=== PATIENT | female | born 2000 | race Caucasian/White ===

== ENCOUNTER 2024-10-09 09:48 | Emergency (ER) | payer BC, SELFPAY ==
--- NOTE | ~2024-10-09 | CT_ITS ---
CLINICAL HISTORY: Right sided pain andi dtenderness CT abdomen and pelvis with contrast Comparison: None Findings: No consolidation at the lung bases. Unremarkable gallbladder and bladder. There is an 8 mm stone in the proximal right ureter causing moderate hydronephrosis. No right nephrolithiasis. No left hydronephrosis or nephrolithiasis. Mild scarring in the upper pole of the left kidney. No focal decreased enhancement of the kidneys. Subcentimeter low attenuating lesion in the liver which is too small to characterize. The other solid organs are unremarkable. No bowel wall thickening or dilation. The appendix is not visualized. No secondary signs of acute appendicitis. Normal vasculature. No lymphadenopathy. No ascites. No acute osseous abnormality. Impression: 8 mm stone in the proximal right ureter causing moderate hydronephrosis. This document has been electronically signed by: Sabrina Dial MD on 10/09/2024 17:52:24
[2024-10-09 10:33] VITALS: BP 124/77; PULSE 77; RESP 16; TEMP 37.1; O2SAT 99; BMI 23.0
[2024-10-09 10:46] LABS: MANUAL DIFF FLAG NO
[2024-10-09 10:52] LABS: Basophils Percent Auto 0.3 % (0-2); Eosinophils Percent Auto 0.3 % (0-4); Hematocrit 41.1 % (37.0-47.0); Hemoglobin 14.1 g/dl (12.0-16.0); Imm Gran Abs Auto 0.04 X10*3/uL (0.00-0.03); Imm Gran Pct Auto 0.4 % (0.0-0.4); Lymphocytes Absolute Auto 1.7 X10*3/uL (1.2-4.9); Lymphocytes Percent Auto 15.4 % (20-40); Mean Corpuscular HGB Conc 34.3 g/dl (31.0-35.0); Mean Corpuscular Hemoglobin 30.2 pg (27.0-33.0); Mean Platelet Volume 8.6 fL (9.4-12.3); Monocytes Absolute Auto 0.9 X10*3/uL (0.1-1.2); Monocytes Percent Auto 7.7 % (2-11); Neutrophils Absolute Auto 8.6 x10*3/uL (2.0-8.3); Neutrophils Percent Auto 75.9 % (45-73); Platelet Count 249 X10*3/uL (160-400); Red Blood Count 4.67 X10*6/uL (4.20-5.50); Red Cell Distribution Width 11.7 % (11.0-16.0); White Blood Count 11.3 X10*3/uL (4.8-10.8)
[2024-10-09 11:05] LABS: Anion Gap 11 (12-20); Blood Urea Nitrogen 11 mg/dL (9-16); Calcium 9.6 mg/dL (8.4-10.2); Carbon Dioxide 24 mmol/L (22-29); Chloride 107 mmol/L (96-108); Creatinine Clr Calc Pharmacy 84.7; Estimated Glomerular Filt Rate > 60; Glucose Random 101 mg/dL (60-115); Potassium 3.8 mmol/L (3.3-5.1); Sodium 138 mmol/L (135-145)
[2024-10-09 11:59] LABS: Appearance Urine Clear; Color Urine Yellow; Glucose Urine UA Negative (Negative); Leukocyte Esterase Urine Moderate (2+) (Negative); Nitrite Urine Negative (Negative); Specific Gravity - Urine <= 1.005 (1.005-1.025); UMIC TRIGGER UACC YES; Urine Blood Negative (Negative); Urine Ketones Negative (Negative); Urine Protein Negative (Neg-Trace)
[2024-10-09 12:01] LABS: UPreg QC Valid YES; Urine Pregnancy NEGATIVE (NEGATIVE)
[2024-10-09 12:02] LABS: Bacteria Urine None Seen (None Seen); Hyaline Casts Urine 0-2 /LPF (0-2); RBC Urine 0-2 /HPF (0-2); Squamous Epithelial Cell Urine 0-2 /HPF (0-2); UACC Culture Trigger YES
--- OUTSIDE RECORDS SUMMARY | 2024-10-09 12:51 | XMS_ITS | Patient Health Record ---
Author Organization [facility] Address [address] [place] [address] Care Team Providers Care Superintendent Operations Division Name Role Phone MATT JACK, JENARO Primary Care Provider PATY Brewer Unavailable [phone] Allergies No Known Allergies Results Component Value Reference Range Notes Chlamydia/GC Amplification Reviewed date:06/18/2024 11:21:51 AM Interpretation: Performing Lab:[facility], [address], [address], [place], Phone - [phone], Director - [place]DM[place] Notes/Report: Chlamydia trachomatis, RAJI Negative Negative Neisseria gonorrhoeae, RAJI Negative Negative PDF Report Reviewed date:06/18/2024 08:51:36 AM Interpretation: Performing Lab:[facility] [place], [address], [address], [place], Phone - [phone], Director - [place]DM[place] Notes/Report: Reason For Referral No Information Medications Medication SIG (Take, Route, Frequency, Duration) Notes Start Date End Date Status Atomoxetine HCl 40 MG Oral for 30 Not-Taking Sertraline HCl 50 MG TAKE 1 TABLET BY [facility] DAILY Oral for 30 PRN Active Nexplanon 68 MG as directed Subcutaneous Active Social History Tobacco Use: Social History Observation Description Date Details (start date - stop date) Never Smoker NA - NA Tobacco Use/Smoking Question Answer Notes Are you a nonsmoker Alcohol Screen (Audit-C) Question Answer Notes Did you have a drink containing alcohol in the p ast year? No Points 0 Interpretation Negative Problems Problem Type SNOMED Code ICD Code Onset Dates Problem Status W/U Status Risk Notes Problem Recurrent major depression (46413540) Major depressive disorder, recurrent, unspecified (F33.9) Active confirmed Problem Attention deficit hyperactivity disorder, combined type (03707832) Attention-deficit hyperactivity disorder, combined type (F90.2) Active confirmed Problem COVID-19 (121032578) COVID-19 (U07.1) Active confirmed Vital Signs Temperature 98.0 degrees Fahrenheit 06/16/2024 Blood pressure diastolic 70 mm Hg 06/16/2024 Height 59 in 06/16/2024 Blood pressure systolic 110 mm Hg 06/16/2024 Weight 111 lbs 06/16/2024 BMI 22.42 kg/m2 06/16/2024 Encounters Encounter Location Date Provider Diagnosis [facility] [address] [place] [address] 06/16/2024 PATY ALLISON Encounter for gynecological examination (general) (routine) without abnormal findings Z01.419 ; High risk bisexual behavior Z72.53 ; Encounter for screening for infections with a predominantly sexual mode of transmission Z11.3 and Encounter for surveillance of implantable subdermal contraceptive Z30.46 Assessments Encounter Date Diagnosis (ICD Code) Assessment Notes Treatment Notes Treatment Clinical Notes Section Notes 06/16/2024 Encounter for gynecological examination (general) (routine) without abnormal findings (ICD-10 - Z01.419) Discussed cervical cancer screening with cytology every 3 years as per ASCCP guidelines. Advised continued annual pelvic exams. Patient encouraged to increase her level of exercise. SBE technique encouraged/tau ght. Safe sexual practices and STI prevention discussed. 06/16/2024 High risk bisexual behavior (ICD-10 - Z72.53) 06/16/2024 Encounter for screening for infections with a predominantly sexual mode of transmission (ICD-10 - Z11.3) 06/16/2024 Encounter for surveillance of implantable subdermal contraceptive (ICD-10 - Z30.46) Continue Nexplanon until 2025. Plan Of Treatment Pending Test Test Name Order Date [id number] 06/16/2024 HBsAg [id number] 06/16/2024 HIV Ab/p24 Ag with Reflex-[id number] 024 HCV Antibody-[id number] 06/16/2024 Next Appt Details Provider Name:PATY BRONSON Marnie, 06/17/2025 11:00:00 AM, [address], [address], [place], [address], Insurance Providers Payer Name Payer Address Payer Phone Subscriber Number Group Number Insured Name Patient Relationship to Insured Coverage Start Date Coverage End Date [employer] [address] [place] [address] [id number] BRIANA MAX Child - Insured has Financial Responsibility Medical (General) History Medical History History ICD Code COVID-19 U07.1 Attention-deficit hyperactivity disorder , combined type F90.2 Major depressive disorder, recurrent, un specified F33.9 Surgical History Surgery Date(Month/Year)
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
--- NOTE | 2024-10-09 15:54 | ED_ITS ---
HPI - General Adult General Chief complaint: Abdominal Pain Stated complaint: Abd pain Time Seen by Provider: 10/09/24 15:54 History of Present Illness ED Provider: Madie TEMPLE narrative: The patient is a 23-year-old female who says that she was awoken from sleep this morning by pain in her right abdomen at around 2:30 AM. The pain has been persistent since then. She has had some associated nausea and vomiting. No diarrhea. She took some ibuprofen which helped for awhile but the pain returned and she went to an urgent care center. She was referred to emergency room. She has never had pain like this before. She does not really feel the pain in her back. She is quite certain she is not . She has a Nexplanon device. She has no history of abdominal surgeries. No fever, sweats, chills. No urinary symptoms. Related Data Previous Rx's ?Medication ?Instructions ?Recorded ibuprofen 400 mg tablet 400 mg PO Q6H PRN pain #14 tabs 10/09/24 morphine 15 mg immediate release 15 mg PO Q6H PRN pain #12 tabs 10/09/24 tablet ondansetron 4 mg disintegrating 4 mg PO Q6H PRN nausea and 10/09/24 tablet vomiting #10 tabs tamsulosin 0.4 mg capsule 0.4 mg PO BEDTIME #7 caps 10/09/24 Allergies Allergy/AdvReac Type Severity Reaction Status Date / Time No Known Allergies Allergy Verified 10/09/24 10:34 Review of Systems 2 Review of Systems: Yes all other systems are reviewed and are negative Physical Exam ED Vital Signs: Vital Signs - 24 hr 10/09/24 19:34 Temperature 98.8 F Pulse Rate 77 Respiratory Rate 16 Blood Pressure 124/77 Pulse Oximetry 99 Oxygen Delivery Method Room Air BMI result Body Mass Index 23.0 Const Other: The patient is a 23-year-old female. She is awake and alert. She does not appear obviously ill or uncomfortable. HENMT Other: Face is symmetrical. Mucous membranes are moist. Eyes General: appearance normal, both eyes and all related structures Neck Neck: Yes full ROM Resp Effort & Inspection: normal respiratory effort Auscultation: clear to auscultation bilaterally Cardio Rate: regular rate Rhythm: regular rhythm Heart sounds: S1 normal heart sound present and S2 normal heart sound present GI Other: The patient has right-sided abdominal tenderness in both the right lower and right upper quadrants. Back/Spine/Pelvis Other: No distinct CVA percussion tenderness on either flank Skin Other: Skin is dry and unremarkable Neuro Other: The patient is awake and alert with a normal mental status. Cranial nerves are grossly intact. She moves her extremities normally and appropriately. Gait is normal Extrem Other: No peripheral edema Medications Administered Discontinued Medications Generic Name Dose Route Start Last Admin Trade Name Freq PRN Reason Stop Dose Admin Sodium Chloride 1,000 mls @ 999 mls/hr 10/09/24 16:15 10/09/24 17:29 Ns IV 10/09/24 17:15 Infused .Q1H1M ROMINA Infusion Sodium Chloride 1,000 mls @ 999 mls/hr 10/09/24 17:30 10/09/24 18:16 Ns IV 10/09/24 18:30 Infused .Q1H1M ROMINA Infusion Iohexol 100 ml 10/09/24 16:57 10/09/24 16:57 Iohexol 350 Mg/Ml 100 Ml Infus..Btl IV 10/09/24 16:58 85 ml ONCE ONE Administration Ketorolac Tromethamine 10 mg 10/09/24 16:04 10/09/24 16:27 Ketorolac Tromethamine 15 Mg/Ml Vial IVPUSH 10/09/24 16:05 10 mg ONCE ONE Administration Tamsulosin HCl 0.4 mg 10/09/24 19:09 10/09/24 19:32 Tamsulosin Hcl 0.4 Mg Capsule PO 10/09/24 19:10 0.4 mg ONCE ONE Administration Medical Decision Making Medical Decision Making [facility] Narrative: The patient is a very pleasant 23-year-old who is generally healthy. She comes with right-sided abdominal pain that woke her from sleep this morning at around 02:30. Has been quite constant and persistent. She has had some nausea and vomiting. No fever. No urinary symptoms. She has never had pain like this before. Differential diagnosis includes appendicitis, biliary colic, pain from a right ovarian syndrome, or possibly a renal source of pain. Labs are unremarkable. Her urinalysis was mildly abnormal but she denies any urinary symptoms. The patient was given an IV and was given ketorolac for pain and IV fluids. A CT scan of the abdomen and pelvis was done and this shows an 8 mm stone in the proximal right ureter causing moderate hydronephrosis. The patient's urinalysis showed 2+ leukocyte esterase and 11-20 white cells. No bacteria. The patient has no symptoms of a UTI and she does not appear infected or toxic in any way. I have asked the patient for a repeat urinalysis with meticulous attention to a clean catch. A repeat urinalysis is negative for leukocyte esterase and nitrites. It shows 6-10 white cells. No bacteria seen. I communicated with Dr. Villalpando of Urology. Although the patient's stone is large in she looks quite well. She does not seem in severe discomfort by any means and she does not appear toxic or ill in any way. My suspicion for an infectious component to this presentation is extremely low. I therefore felt that outpatient management for standard kidney stone care would be appropriate. Dr. Villalpando felt this was reasonable. Therefore the patient was discharged with prescriptions for ibuprofen, morphine, ondansetron, and tamsulosin. The patient was instructed to contact the urology office on Saturday for a follow-up appointment. She was also clearly advised to return if she develops a fever or has significantly worsening pain or vomiting. Lab Data 10/09/24 10:43 10/09/24 10:43 Labs: Lab Results 10/09/24 10/09/24 10/09/24 Range/Units 10:43 11:50 18:41 WBC 11.3 H (4.8-10.8) X10*3/uL RBC 4.67 (4.20-5.50) X10*6/uL Hgb 14.1 (12.0-16.0) g/dl Hct 41.1 (37.0-47.0) % MCV 88.0 (80.0-98.0) fL MCH 30.2 (27.0-33.0) pg MCHC 34.3 (31.0-35.0) g/dl RDW 11.7 (11.0-16.0) % Plt Count 249 (160-400) X10*3/uL MPV 8.6 L (9.4-12.3) fL Immature Gran % (Auto) 0.4 (0.0-0.4) % Neut % (Auto) 75.9 H (45-73) % Lymph % (Auto) 15.4 L (20-40) % [place] % (Auto) 7.7 (2-11) % Eos % (Auto) 0.3 (0-4) % Baso % (Auto) 0.3 (0-2) % Lymph # (Auto) 1.7 (1.2-4.9) X10*3/uL [place] # (Auto) 0.9 (0.1-1.2) X10*3/uL Eos # (Auto) 0.0 (0.0-0.4) X10*3/uL Baso # (Auto) 0.0 (0.0-0.2) X10*3/uL Abs Immat Gran (auto) 0.04 H (0.00-0.03) X10*3/uL Absolute Neuts (auto) 8.6 H (2.0-8.3) x10*3/uL Absolute Nucleated RBC 0.000 (0.0-0.012) X10*3/uL Nucleated RBC % (auto) 0.0 (0.0-0.2) /100WBC Sodium 138 (135-145) mmol/L Potassium 3.8 (3.3-5.1) mmol/L Chloride 107 (96-108) mmol/L Carbon Dioxide 24 (22-29) mmol/L Anion Gap 11 L (12-20) BUN 11 (9-16) mg/dL Creatinine 0.71 (0.5-1.4) mg/dL Estim Creat Clear Calc 84.7 Estimated GFR > 60 Random Glucose 101 (60-115) mg/dL Calcium 9.6 (8.4-10.2) mg/dL Total Bilirubin 0.8 (0.0-1.0) mg/dL Direct Bilirubin 0.3 (0.0-0.5) mg/dL AST 29 (5-31) U/L ALT 20 (0-31) U/L Alkaline Phosphatase 71 (39-117) U/L C-Reactive Protein 0.19 (< or = 0.50) mg/dL Total Protein 8.3 H (6.5-8.0) g/dL Albumin 4.7 (3.5-5.0) g/dL Lipase 22 (8-78) U/L Urine Color Yellow Yellow Urine Appearance Clear Clear Urine pH 7.0 6.5 (5.0-9.0) Ur Specific [place] <= 1.005 >= 1.030 H (1.005-1.025) Urine Protein Negative Negative (Neg-Trace) mg/dL Urine Glucose (UA) Negative Negative (Negative) mg/dL Urine Ketones Negative 15 (Negative) mg/dL Urine Blood Negative Moderate (2+) H (Negative) Urine Nitrite Negative Negative (Negative) Ur Leukocyte Esterase Moderate (2+) H Negative (Negative) Urine RBC 0-2 >20 H (0-2) /HPF Urine WBC 11-20 H 6-10 H (0-5) /HPF Ur Squamous Epith Cells 0-2 0-2 (0-2) /HPF Urine Bacteria None Seen None Seen (None Seen) Hyaline Casts 0-2 0-2 (0-2) /LPF Urine Test NEGATIVE (NEGATIVE) Discharge Plan Discharge Clinical Impression: Calculus of proximal right ureter Patient Disposition: Home, Self-Care Instructions: Renal Colic (ED), Ureteral Stones (ED) Additional Instructions: You have an 8 mm stone in your right ureter. Please take the tamsulosin once a day at bedtime. This may help relax the ureter to allow forward passage of the stone. You have already received your dose of tamsulosin ton, Saturday. For pain control you may take 2 extra-strength acetaminophen (Tylenol) up to 3 times per day. Do not exceed this amount. I have also sent prescriptions for ibuprofen and morphine tablets may take the ibuprofen every 6 hours as needed for pain. May also take the morphine tablets as prescribed as needed. No driving on morphine. Also a prescription for ondansetron has been sent to use as needed for nausea. Drink lot of fluids. Please contact the urology office on Saturday morning for a prompt follow up appointment. If at any point your pain is too severe or if you have a lot of vomiting or if you develop a fever return directly to the emergency room. Prescriptions: New ibuprofen 400 mg tablet 400 mg PO Q6H PRN (Reason: pain) Qty: 14 0RF morphine 15 mg tablet 15 mg PO Q6H PRN (Reason: pain) Qty: 12 0RF Rx Instructions: Partial Fill upon patient request. ondansetron 4 mg tablet,disintegrating 4 mg PO Q6H PRN (Reason: nausea and vomiting) Qty: 10 0RF tamsulosin 0.4 mg capsule 0.4 mg PO BEDTIME Qty: 7 0RF Referrals: [facility] – [place] [facility] [Provider Group] (8 mm right proximal ureteral stone) Stand Alone Forms: Work/School Release Interventions: ED Discharge Assessment Last Done: 10/09/24 19:34 Discharge Date/Time: 10/09/24 19:37 Print Language: Qatari
[2024-10-09] MEDS: Ketorolac Tromethamine 15 MG/ML VIAL 10 MG IVPUSH (16:27)
[2024-10-09] MEDS: 0.9 % Sodium Chloride 1,000 ML 999 ML IV ×2 (16:27→17:29)
[2024-10-09 16:34] LABS: Alanine Aminotransferase 20 U/L (0-31); Albumin Level 4.7 g/dL (3.5-5.0); Alkaline Phosphatase 71 U/L (39-117); Aspartate Amino Transferase 29 U/L (5-31); Bilirubin Direct 0.3 mg/dL (0.0-0.5); Bilirubin Total 0.8 mg/dL (0.0-1.0); C Reactive Protein 0.19 mg/dL (< or = 0.50); Lipase 22 U/L (8-78); Total Protein 8.3 g/dL (6.5-8.0)
[2024-10-09] MEDS: iohexoL 350 MG/ML 100 ML INFUS..BTL IV (16:57)
[2024-10-09 18:48] LABS: Appearance Urine Clear; Color Urine Yellow; Glucose Urine UA Negative (Negative); Leukocyte Esterase Urine Negative (Negative); Nitrite Urine Negative (Negative); PH 6.5 (5.0-9.0); Specific Gravity - Urine >= 1.030 (1.005-1.025); UMIC TRIGGER UACC YES; Urine Blood Moderate (2+) (Negative); Urine Ketones 15 mg/dL (Negative); Urine Protein Negative (Neg-Trace)
[2024-10-09 18:54] LABS: Bacteria Urine None Seen (None Seen); Hyaline Casts Urine 0-2 /LPF (0-2); RBC Urine >20 /HPF (0-2); Squamous Epithelial Cell Urine 0-2 /HPF (0-2); UACC Culture Trigger YES
[2024-10-09] MEDS: Tamsulosin HCL 0.4 MG CAPSULE PO (19:32)
[2024-10-09 19:34] VITALS: BP 124/77; PULSE 77; RESP 16; TEMP 37.1; O2SAT 99
== END 2024-10-09 19:37 | disposition home or self-care (01) ==
PROVIDERS: Emergency Provider Emergency Medicine; PCP Internal Medicine
DX: N20.1 Calculus of ureter (principal); R10.2 Pelvic and perineal pain; R11.2 Nausea with vomiting, unspecified; Z79.899 Other long term (current) drug therapy
CPT/HCPCS: 36415; 74177; 80048; 80076; 81001; 81003; 81025; 83690; 85025; 86140; 87086; 96361; 96374; 99284; J1885; Q9967

== ENCOUNTER → 2024-10-09 16:02 | Outpatient (BNV) | payer BC, SELFPAY | PROVIDERS: Emergency Provider Emergency Medicine; PCP Internal Medicine; Visit Provider Radiology Diagnostic Radiology | DX: N20.1 Calculus of ureter (principal) | CPT/HCPCS: 74177 ==

== ENCOUNTER 2024-10-13 11:15 | Outpatient (AMB) | payer BC, SELFPAY ==
--- NOTE | 2024-10-13 11:17 | A.OFFVIS_ITS ---
Intake Visit Reasons: ureteral stone Intake Note: Patient is present for URETERAL STONE Urology Medication:TAMSULOSIN Antibiotic Allergy:NONE Blood Thinner:NONE TODAY''S PVR:0ML'S Senior Property Manager Required: No Allergies No Known Allergies Allergy (Verified 10/13/24 11:18) HPI Comments Details: Rip is a very pleasant female. She is a patient of . She is seen for the following urologic conditions - ureteric nephrolithiasis Nephrolithiasis Recently seen in emergency room First-time stone former Family history Imaging - 10/13 There is an 8 mm stone in the proximal right ureter causing moderate hydronephrosis. No right nephrolithiasis. No left hydronephrosis or nephrolithiasis. Mild scarring in the upper pole of the left kidney. Recommend intervention - cystoscopy, right retrograde, right ureteroscopy with laser lithotripsy and stone basket Review of Systems Const Denies chills and Denies fever(s) Card Reports no additional complaints and Denies syncope Resp Denies cough GI Denies abdominal pain and Denies heartburn Reports as per HPI and Denies change in libido Neuro Denies syncope Psych Denies change in libido Endo Denies change in libido Physical Exam Const General: cooperative, healthy appearing, comfortable and no acute distress Orientation/consciousness: patient oriented x3 HEENT Face and sinus: Yes normal facial exam Mouth: moist mucous membranes Neck Neck: Yes normal visual inspection, Yes full ROM and Yes trachea midline Chest Chest palpation & inspection: normal inspection of the chest Resp Effort & Inspection: normal respiratory effort, able to speak in complete sentences and no respiratory distress GI Inspection: Yes normal to inspection Back/Spine/Pelvis Cervical Spine: normal cervical lordosis Thoracic/Lumbar Spine: thoracic and lumbar spine normal to inspection Skin General skin exam: no rashes or lesions noted Neuro General: patient oriented x3, gait normal, tone normal and moves all extremities Extrem General: Yes normal to inspection and Yes capillary refill normal Office Procedures Post Void Residual Post Residual Void Post Void Residual (PVR): 0 [id number]-Srsu Void Residual by ultrasound Assessment & Plan Assessment & Plan (1) Ureteric calculus: Code(s): N20.1 - Calculus of ureter Category: Medical Plan Ureteroscopy We discussed the nature of the decision and reasonable alternatives for performing ureteroscopy. Options such as medical therapy were discussed. Interventions include chemical dissolution, ESWL, ureteroscopy with laser lithotripsy and stent placement, PCNL. The relative uncertainties and benefits related to each alternate procedure were adequately discussed. General surgical risks including, but not limited to - pain, bleeding, infection, myocardial infarction, pulmonary embolus, deep vein thrombosis and cerebrovascular accident which may result in further hospitalization were discussed. Full disclosure of the procedure as well as all major risks, benefits and complications were discussed including but not limited to damage to the urethra, bladder and kidney infection, damage to the ureter, stent migration or malposition, scarring to the renal pelvis, remnant stone fragments, subsequent stone passage with need for secondary procedures. The overall secondary procedure rate is approximately 10-15%. The overall clearance rate is approximately 90-95%. Success of the procedure in the short-term does not necessarily guarantee that long-term success will be maintained. Suitable follow up will need to be maintained. The patient showed understanding of discussion and wishes to proceed with - cystoscopy, retrograde, ureteroscopy, possible lithotripsy/stone basketing and stent on the right side Orders: Orders AMB Urinalysis Automated Today Z13.9 - Encounter for screening, unspecified Medications: New naproxen 500 mg PO BID 14 days 28 tabs 0RF N20.1 - Calculus of ureter Discontinued ibuprofen Discontinued Reason: Patient Completed Course 400 mg PO Q6H PRN 14 tabs 0RF pain Patient Instructions: This note is constructed using voice recognition software. While every effort has been made to ensure accuracy regional property manager errors may have been included. Imaging studies, laboratory and physical exam results were discussed and reviewed in detail. No major barriers to patient understanding were identified. An opportunity to ask questions regarding the treatment plan was provided. All questions were answered. The patient expressed understanding and agreement with the above treatment plan. The patient is aware they should contact our office by phone for worsening of their current condition or the appearance of new urologic symptoms. Compliance is encouraged with any medications and followup testing that is ordered. It is a privilege to participate in the urologic care of your patient. If you have any questions or concerns regarding treatment for the above conditions, or other urologic issues, please do not hesitate to contact me. The office telephone contact is [phone]. Sincerely, Dr Maycol Mcintosh MD, [facility] - Urology Compassionate Specialist Care for the Genitourinary System Coding Level of Care Code New Pt Level 4 (52859) Diagnoses Ureteric calculus N20.1 CPT Codes Post Residual Void - PVR CPT Code: 22214-Ojek Void Residual by ultrasound ([id number])
--- OUTSIDE RECORDS SUMMARY | 2024-10-13 13:47 | XMS_ITS | Patient Health Record ---
Author Organization [facility] Address [address] [place] [address] Care Team Providers Care Manager Of Care Name Role Phone MATT JACK, JENARO Primary Care Provider PATY Brewer Unavailable [phone] Allergies No Known Allergies Results Component Value Reference Range Notes Chlamydia/GC Amplification Reviewed date:06/18/2024 11:21:51 AM Interpretation: Performing Lab:[facility], [address], [address], [place], Phone - [phone], Director - [place] Notes/Report: Chlamydia trachomatis, RAJI Negative Negative Neisseria gonorrhoeae, RAJI Negative Negative PDF Report Reviewed date:06/18/2024 08:51:36 AM Interpretation: Performing Lab:[facility], [address], [address], [place], Phone - [phone], Director - [facility] Notes/Report: Reason For Referral No Information Medications Medication SIG (Take, Route, Frequency, Duration) Notes Start Date End Date Status Atomoxetine HCl 40 MG Oral for 30 Not-Taking Sertraline HCl 50 MG TAKE 1 TABLET BY [facility] DAILY Oral for 30 PRN Active Nexplanon [...] Status Risk Notes Problem Recurrent major depression (35472331) Major depressive disorder, recurrent, unspecified (F33.9) Active confirmed Problem Attention deficit hyperactivity disorder, combined type (12358151) Attention-deficit hyperactivity disorder, combined type (F90.2) Active confirmed Problem COVID-19 (026045978) COVID-19 (U07.1) Active confirmed Vital Signs Temperature 98.0 degrees Fahrenheit 06/16/2024 Blood pressure diastolic 70 mm Hg 06/16/2024 Height 59 in 06/16/2024 Blood pressure systolic 110 mm Hg 06/16/2024 Weight 111 lbs 06/16/2024 BMI 22.42 kg/m2 06/16/2024 Encounters Encounter Location Date Provider Diagnosis [facility] [address] [place] [address] 06/16/2024 PATY ALLISON Encounter for gynecological examination [...] Treatment Pending Test Test Name Order Date [id number] 06/16/2024 HBsAg [id number] 06/16/2024 HIV Ab/p24 Ag with Reflex-[id number] 024 HCV Antibody-[id number] 06/16/2024 Next Appt Details Provider Name:PATY BRONSON Marnie, 06/17/2025 11:00:00 AM, [address], [address], [place], [address], Insurance Providers Payer Name Payer Address Payer Phone Subscriber Number Group Number Insured Name Patient Relationship to Insured Coverage Start Date Coverage End Date [employer] [place] [address] [place] [address] [id number] BRIANA MAX Child - Insured has Financial Responsibility Medical (General) History Medical History History ICD Code COVID-19 U07.1 Attention-deficit hyperactivity disorder , combined type F90.2 Major depressive disorder, recurrent, un specified F33.9 Surgical History Surgery Date(Month/Year)
--- OUTSIDE RECORDS SUMMARY | 2024-10-13 13:47 | XMS_ITS ---
Author Organization [facility] Address [address] [place] [address] Care Team Providers Care Cook Pickled Meat Name Role Phone MATT JACK, JENARO Primary Care Provider Fariha PATY Palacios Unavailable [phone] Allergies No Known Allergies Results Component Value Reference Range Notes PDF Report Reviewed date:06/18/2024 08:51:36 AM Interpretation: Performing Lab:[facility], [address], [address], [place], Phone - [phone], [facility] - [facility] Notes/Report: Chlamydia/GC Amplification Reviewed date:06/18/2024 11:21:51 AM Interpretation: Performing Lab:[facility] [place], [address], [address], [place], Phone - [phone], [facility] Notes/Report: Chlamydia trachomatis, RAJI Negative Negative Neisseria gonorrhoeae, RAJI Negative Negative REASON FOR VISIT Annual 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 [address] [place] [address] 06/16/2024 PATY ALLISON Encounter for gynecological examination [...] 2025. Pending Test Test Name Order Date [id number] 06/16/2024 HBsAg Screen-[id number] 06/16/2024 HIV Ab/p24 Ag with Reflex-[id number] 024 HCV Antibody-[id number] 06/16/2024 Next Appt Details Follow Up: 1 Year, Reason: Y early Special Education Educational Assistant Exam Provider Name:PATY BRONSON Marnie, 06/17/2025 11:00:00 AM, [address], [address], [place], [address], Progress Notes * DONTAE ORDAZ:2000 ([age] yo F)Acc No.[id number]:06/16/2024 PROGRESS NOTES Patient:?RIP ORDAZ Provider:?PATY ALLISON MD :2000???Age:23 Y???Sex:Female D ate:06/16/2024 Address:[address] [place] [address] Pcp:JENARO GUTIERREZ MD Subjective: * Chief Complaints: * ???Annual 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 She has the following concerns: irregular bleeding with Nexplanon ?She has received the [employer] Covid-19 vaccine. ?Relationship status: partnered, male, for [...] -2?days/week by running and walking. * ROS:?Annual Special Education Educational Assistant Exam ROS:?Bowel habit changes?denies.?Bladder symptoms?denies.?Vaginal discharge, unusual?denies.?Vaginal itch or odor?denies.?weight or appetite changes?denies.?Chest pains, SOB?denies.?depression?denies.?Breast:?Denies?Breast lump.?Denies?Nipple discharge.?Hematology:?Denies?Swollen glands.?Skin:?Patient denies?changing moles.?Psychiatric:?Admits?Anxiety,?she uses breathing techniques and taking some space.? * Medical History:? * Special Education Educational Assistant History:?/ Para?0/0.?Sexual activity?with both men and women; [...] status: single. 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 ?Pets: cats: 1. ?Sexual abuse: no. ?Sexually [...] no acute distress, well developed, well nourished, fruit harvest worker present in room.?HEAD:?normocephalic, atraumatic.?NECK/THYROID:?neck supple, full range [...] * Treatment: 2.?High risk bisexual behavi or?LAB: [id number] ?LAB: HBsAg Screen-[id number] ?LAB: HIV Ab/p24 Ag with Reflex-[id number] ?LAB: HCV Antibody-[id number] ?LAB: Chlamydia/GC Amplification 3.?Encounter for screening f or infections with a predominantly sexual mode of transmission?LAB: [id number] ?LAB: HBsAg Screen-465329 ?LAB: HIV Ab/p24 Ag with Reflex-553751 ?LAB: HCV Antibody-[id number] ?LAB: Chlamydia/GC Amplification 4.?Encounter for surveillanc e of implantable subdermal contraceptive? Notes: Continue Nexplanon until 2025.?? * Procedure Codes:? * Follow Up:?1 Year (Reason: Y early Special Education Educational Assistant Exam) * Images: Billing Information: * Visit Code:? 75881 Preventive Care Est Pt. Age 18-39. * Procedure Codes:? * Sign off status: Completed true * Provider:?PATY ALLISON MD Date:?2023 Generated for Peng constantino/Sue/Adrianaitting on:?10/13/2024 01:47 PM EST History and Physical Notes * HPI (History of Present Illness) Category Sub-Category Detail Notes Category Not es Constitutional Rip is a 23yo G0 with irregular spotting on Nexplanon who presents for her yearly leaf conditioner annual exam. She has been in state [...] General Examination GENERAL APPEARANCE: in no ac [place] distress, well developed, well nourished, fruit harvest worker present in room HEAD: normocephalic, atrau matic [...]
--- OUTSIDE RECORDS SUMMARY | 2024-10-13 13:47 | XMS_ITS ---
Author Organization [facility] Address [address] [place] [address] Care Team Providers Care Outside Machinist Supervisor Name Role Phone MATT JACK, JENARO Primary Care Provider Fariha vailamumtaz ALLISON PATY Unavailable [phone] Allergies No Known Allergies Results Component Value Reference Range Notes ANTI-HEPATITIS C Reviewed date:06/17/2023 08:53:49 AM Interpretation: Performing Lab:Testing performed or reported by [facility], a Service of [facility], [address] [place] [address] Jem Emerson MD, Steam Drier Tender CLIA# [id number] Notes/Report: ANTI-HEPATITIS C NEGATIVE (NEG) Reference range: Negative This test was performed on the Malin Resizer Operator immunoassay system. HEP. B SURF. AG Reviewed date:06/17/2023 08:53:55 AM Interpretation: Performing Lab:Testing performed or reported by [facility], a Service of [facility], [address] [place] [address] Jem Emerson MD, Steam Drier Tender CLIA# [id number] Notes/Report: HEP. B SURF. AG NEGATIVE (NEG) Test perform ed by [facility], [address] [place] [address] THIN PREP,HPV IF ASCUS, CT/G C (21-29YR) Reviewed date:06/20/2023 01:49:38 PM Interpretation: Performing Lab:Testing performed or reported by [facility], a Service of [facility], [address] [place] [address] Jem Emerson MD, Steam Drier Tender CLIA# [id number] Notes/Report: Patient Name: RIP ORDAZ Patient : 2000 (Age: 22) Lab Collection Date: 06/13/2023 Accession Date: 06/13/2023 Sign Out Date: 06/20/2023 Tissue Source: 1: THINPREP HI LIFT OPERATOR PAP TEST, CERVICAL/VAGINAL: Final Diagnosis: NEGATIVE FOR INTRAEPITHELIAL LESION OR MALIGNANCY. Satisfactory for evaluation. Endocervical/transformati on zone present. Clinical History: Date of Last Menstrual Period: 03/2023 Menstrual History: not available Contraceptive History: not available Ancillary Testing: HPV (ASCUS) Chlamydia/GC Case imaged by the ThinPrep Imaging System with manual rescreening or review. Performed at [facility] department of Cytology, [facility] [place] Clinical History (other): Z01.419, Z11.3, IRREGULAR PERIOD WITH [employer] Phone #: [phone], On-Call Pathologist: [id number] SYPHILIS TESTING Reviewed date:06/17/2023 08:54:02 AM Interpretation: Performing Lab:Testing performed or reported by [facility], a Service of [facility], [facility] [place] [address] Jem Emerson MD, Steam Drier Tender CLIA# [id number] Notes/Report: SYPHILIS SCREEN BY NICHOLE NEGATIVE (NEG) Reference range: Negative This test was performed on the CaseTrek Resizer Operator immunoassay system. RPR TITER RESULT NOT INDICATED TPPA RESULT NOT INDICATED SYPHILIS INTERPRETATION Indicative of th e absence of infection with Treponemal pallidum. Test may be negative in cases of incubating or early primary syphilis. Consider repeat testing in several weeks if clinical suspicion is high. HIV AB-AG 4TH GENERATION Reviewed date:06/17/2023 08:54:13 AM Interpretation: Performing Lab:Testing performed or reported by [facility], a Service of [facility], [facility] [address] Jem Emerson MD, Steam Drier Tender CLIA# [id number] Notes/Report: RESULT 4TH GEN HIV AB-AG NEGATIVE (NEG) Negative for antibodies to HIV 1 and HIV 2 and P24 antigen. Reference range: Negative Additional note: Written patient authorization is required for each separate release of this test result. This test was performed on the Malin Resizer Operator immunoassay system. REASON FOR VISIT Annual HI LIFT OPERATOR Physical Medications Medication SIG (Take, Route, Fr [...] Status W/U Status Risk Notes Problem COVID-19 (320144562) COVID-19 (U07.1) Active confirmed Problem Attention deficit hyperactivity disorder, combined type (65345974) Attention-deficit hyperactivity disorder, combined type (F90.2) Active confirmed Problem Recurrent major depression (91786550) Major depressive disorder, recurrent, unspecified (F33.9) Active confirmed Vital Signs Temperature 97.3 degrees Fahrenheit 06/13/20 23 Blood pressure systolic 104 mm Hg 06/13/20 23 Blood pressure diastolic 60 mm Hg 023 Height 59 in 06/13/2023 Weight 108 lbs 06/13/2023 BMI 21.81 kg/m2 06/13/2023 Encounters Encounter Location Date Provider Diagnosis [address] [place] [address] 06/13/2023 PATY ALLISON Encounter for gynecological examination [...] Follow Up: 1 Year, Reason: Y early Energy Director Exam Provider Name:PATY BRONSON Marnie, 06/17/2025 11:00:00 AM, [address], [address], [place], [address], Progress Notes * RIP ORDAZDOB:2000 ([age] yo F)Acc No.[id number]:06/13/2023 Progress Note Patient:?RIP ORDAZ Provider:?PATY ALLISON MD :2000???Age:22 Y???Sex:Female D ate:06/13/2023 Address:[address] [place] [address] Pcp:JENARO GUTIERREZ MD Subjective: * Chief Complaints: * ???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 Rip is a 22yo G0 with irregular spotting on Nexplanon who presents for her yearly sampler ovens annual exam. She is new to this practice, having never received previous sampler ovens care. ?She has been in state of good health since her last exam. She has the following concerns: she had postcoital bleeding - sometimes light, sometimes heavy, last time was about a year ago. ?She has received the [employer] Covid-19 vaccine. ?Relationship status: single. She is [...] have dancing and other movement). * ROS:?Annual Energy Director Exam ROS:?Bowel habit changes?denies.?Bladder symptoms?denies.?Vaginal discharge, unusual?denies.?Vaginal itch or odor?denies.?weight or appetite changes?denies.?Chest pains, SOB?denies.?depression?denies,?feels ok today - denies SI/HI.?Breast:?Denies?Breast lump.?Denies?Nipple discharge.?Hematology:?Denies?Swollen glands.?Skin:?Patient denies?changing moles.?Psychiatric:?Admits?Anxiety,?she uses deep breathing and introspective review.? * Medical History:? * Energy Director History:?/ Para?0/0.?Sexual activity?with both men and women; identifies as female.?LMP and menses?irregular, 03/2023.?History of STD's:?Chlamydia.? Control:?Nexplanon, Insertion 10/2022.?Menarche?14.?*Hep B Vac?2014.? * OB History:?Total pregnancies?0.? * Surgical History:?Denies Pas t Surgical History * Hospitalization/Major Diagno stic Procedure:?Denies Past Hospitalization * Family History:?Mother: aliv e, diabetes, mental illness, estranged from bio parents.?Father: alive, diabetes, mental illness, estranged.? Sister - Juyd - 2009 - shares same mother - [...] ?GENERAL APPEARANCE:?in no acute distress,well developed, well nourished,package dye stand loader present in room.?HEAD:?normocephalic, atraumatic.?NECK/THYROID:?neck supple, full range [...] * Treatment: ? Value Reference Range ?CYTOLOGY, HI LIFT OPERATOR Patient Name: RIP ORDAZ - * VAGINAL/CERVICAL, [...] Codes:? * Preventive Medicine:?Suicide Prevention Hotline - 787 [email or web address] * Follow Up:?1 Year (Reason: Y early Energy Director Exam) * Images: Billing Information: * Visit Code:? 90541 Preventive Care New Pt. Age 18-39. * Procedure Codes:? * Sign off status: Completed true * Provider:?PATY ALLISON MD Date:?2022 Generated for Peng constantino/Sue/Harris on:?10/13/2024 01:46 PM EST History and Physical Notes * HPI (History of Present Illness) Category Sub-Category Detail Notes Category Not es Constitutional Rip is a 22yo G0 with irregular spotting on Nexplanon who presents for her yearly sampler ovens annual exam. She is new to this practice, having never received previous sampler ovens care. She has been in state of good health since her last exam. She has the following concerns: she had postcoital bleeding - sometimes light, sometimes heavy, last time was about a year ago. She has received the [employer] Covid-19 vaccine. Relationship status: single. She is [...] ac freddie distress, well developed, well nourished, package dye stand loader present in room HEAD: normocephalic, atrau matic [...]
== END 2024-10-13 11:59 | disposition home or self-care (01) ==
PROVIDERS: PCP Internal Medicine; Visit Provider Urology
DX: N20.1 Calculus of ureter (principal)
CPT/HCPCS: 99204

== ENCOUNTER → 2024-10-13 11:15 | Outpatient (BNVA) | payer BC, SELFPAY | PROVIDERS: PCP Internal Medicine; Visit Provider Urology | DX: N20.1 Calculus of ureter (principal) | CPT/HCPCS: 51798 ==

== ENCOUNTER 2024-10-27 07:51 | Day surgery (SDC) | payer BC, SELFPAY ==
--- OUTSIDE RECORDS SUMMARY | 2024-10-15 16:06 | XMS_ITS | Patient Health Record ---
Author Organization [facility] Address [address] [place] [address] Care Team Providers Care Motel Keeper Name Role Phone MATT JACK, JENARO Primary Care Provider PATY Brewer Unavailable [phone] Allergies No Known Allergies Results Component Value Reference Range Notes PDF Report Reviewed date:06/18/2024 08:51:36 AM Interpretation: Performing Lab:[facility], [address], [address], [place], Phone - [phone], Director - [facility] Notes/Report: Chlamydia/GC Amplification Reviewed date:06/18/2024 11:21:51 AM Interpretation: Performing Lab:[facility], [address], [address], [place], Phone - [phone], Director - [facility] Notes/Report: Chlamydia trachomatis, RAJI Negative Negative Neisseria gonorrhoeae, RAJI Negative Negative Reason For Referral No Information Medications Medication SIG (Take, Route, Frequency, Duration) Notes Start Date End Date Status Atomoxetine HCl 40 MG Oral for 30 Not-Taking Sertraline HCl 50 MG TAKE 1 TABLET BY [facility] DAILY Oral for 30 PRN Active [...] Status Risk Notes Problem Recurrent major depression (20498642) Major depressive disorder, recurrent, unspecified (F33.9) Active confirmed Problem Attention deficit hyperactivity disorder, combined type (33143187) Attention-deficit hyperactivity disorder, combined type (F90.2) Active confirmed Problem COVID-19 (410518016) COVID-19 (U07.1) Active confirmed Vital Signs Temperature 98.0 degrees Fahrenheit 06/16/2024 Blood pressure diastolic 70 mm Hg 06/16/2024 Height 59 in 06/16/2024 Blood pressure systolic 110 mm Hg 06/16/2024 Weight 111 lbs 06/16/2024 BMI 22.42 kg/m2 06/16/2024 Encounters Encounter Location Date Provider Diagnosis [facility] [address] [place] [address] 06/16/2024 PATY ALLISON Encounter for gynecological examination [...] Treatment Pending Test Test Name Order Date [id number] 06/16/2024 HBsAg Screen-[id number] 06/16/2024 HIV Ab/p24 Ag with Reflex-[id number] 024 HCV Antibody-[id number] 06/16/2024 Next Appt Details Provider Name:PATY BRONSON Marnie, 06/17/2025 11:00:00 AM, [address], [address], [place], [address], Insurance Providers Payer Name Payer Address Payer Phone Subscriber Number Group Number Insured Name Patient Relationship to Insured Coverage Start Date Coverage End Date [employer] [place] [address] [place] [address] [id number] BRIANA MAX Child - Insured has Financial Responsibility Medical (General) History Medical History History ICD Code COVID-19 U07.1 Attention-deficit hyperactivity disorder , combined type F90.2 Major depressive disorder, recurrent, un specified F33.9 Surgical History Surgery Date(Month/Year)
--- OUTSIDE RECORDS SUMMARY | 2024-10-15 16:06 | XMS_ITS ---
Author Organization [facility] Address [address] [place] [address] Care Team Providers Care Airport Control Operator Name Role Phone MATT JACK, JENARO Primary Care Provider Fariha PATY Palacios Unavailable [phone] Allergies No Known Allergies Results Component Value Reference Range Notes PDF Report Reviewed date:06/18/2024 08:51:36 AM Interpretation: Performing Lab:[facility], [address], [address], [employer], Phone - [phone], [facility] Notes/Report: Chlamydia/GC Amplification Reviewed date:06/18/2024 11:21:51 AM Interpretation: Performing Lab:[facility], [address], [address], [employer], Phone - [phone], [facility] Notes/Report: Chlamydia trachomatis, RAJI Negative Negative Neisseria gonorrhoeae, RAJI Negative Negative REASON FOR VISIT 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 Pending Test Test Name Order Date [id number] 06/16/2024 HBsAg Screen-[id number] 06/16/2024 HIV Ab/p24 Ag with Reflex-[id number] 024 HCV Antibody-[id number] 06/16/2024 Next Appt Details Follow Up: 1 Year, Reason: Y early Field Installer Exam Provider Name:PATY BRONSON Marnie, 06/17/2025 11:00:00 AM, [address], [place], [address], Progress Notes * DONTAE ORDAZ:2000 ([age] yo F)Acc No.[id number]:06/16/2024 PROGRESS NOTES Patient:?RIP ORDAZ Provider:?PATY ALLISON MD :2000???Age:23 Y???Sex:Female D ate:06/16/2024 Address:[address] [place] [address] Pcp:JENARO GUTIERREZ MD Subjective: * Chief Complaints: * ???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 She has the following concerns: irregular bleeding with Nexplanon ?She has received the [employer] Covid-19 vaccine. ?Relationship status: partnered, male, for [...] -2?days/week by running and walking. * ROS:?Annual Field Installer Exam ROS:?Bowel habit changes?denies.?Bladder symptoms?denies.?Vaginal discharge, unusual?denies.?Vaginal itch or odor?denies.?weight or appetite changes?denies.?Chest pains, SOB?denies.?depression?denies.?Breast:?Denies?Breast lump.?Denies?Nipple discharge.?Hematology:?Denies?Swollen glands.?Skin:?Patient denies?changing moles.?Psychiatric:?Admits?Anxiety,?she uses breathing techniques and taking some space.? * Medical History:? * Field Installer History:?/ Para?0/0.?Sexual activity?with both men and women; [...] status: single. 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 ?Pets: cats: 1. ?Sexual abuse: no. 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 Notes: Continue Nexplanon until 2025.?? * Procedure Codes:? * Follow Up:?1 Year (Reason: Y early Field Installer Exam) * Images: Billing Information: * Visit Code:? 03920 Preventive Care Est Pt. Age 18-39. * Procedure Codes:? 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
--- OUTSIDE RECORDS SUMMARY | 2024-10-15 16:06 | XMS_ITS ---
Author Organization [facility] Address [address] [place] [address] Care Team Providers Care Residence Manager Name Role Phone MATT JACK, JENARO Primary Care Provider Fariha vailamumtaz ALLISON PATY Unavailable [phone] Allergies No Known Allergies Results Component Value Reference Range Notes ANTI-HEPATITIS C Reviewed date:06/17/2023 08:53:49 AM Interpretation: Performing Lab:Testing performed or reported by [facility], a Service of [facility], [address] [place] [address] Jem Emerson MD, Hairspring Ii Inspector CLIA# [id number] Notes/Report: ANTI-HEPATITIS C NEGATIVE (NEG) Reference range: Negative This test was performed on the Malin Stock Mover immunoassay system. HEP. B SURF. AG Reviewed date:06/17/2023 08:53:55 AM Interpretation: Performing Lab:Testing performed or reported by [facility], a Service of [facility], [address] [place] [address] Jem Emerson MD, Hairspring Ii Inspector CLIA# [id number] Notes/Report: HEP. B SURF. AG NEGATIVE (NEG) Test perform ed by [facility], [address] [place] [id number] THIN PREP,HPV IF ASCUS, CT/G C (21-29YR) Reviewed date:06/20/2023 01:49:38 PM Interpretation: Performing Lab:Testing performed or reported by [facility], a Service of [facility], [address] [place] [address] Jem Emerson MD, Hairspring Ii Inspector CLIA# [id number] Notes/Report: Patient Name: RIP ORDAZ Patient : 2000 (Age: 22) Lab Collection Date: 06/13/2023 Accession Date: 06/13/2023 Sign Out Date: 06/20/2023 Tissue Source: 1: THINPREP INDUSTRIAL EQUIPMENT WIRER PAP TEST, CERVICAL/VAGINAL: Final Diagnosis: NEGATIVE FOR INTRAEPITHELIAL LESION OR MALIGNANCY. Satisfactory for evaluation. Endocervical/transformati on zone present. Clinical History: Date of Last Menstrual Period: 03/2023 Menstrual History: not available Contraceptive History: not available Ancillary Testing: HPV (ASCUS) Chlamydia/GC Case imaged by the ThinPrep Imaging System with manual rescreening or review. Performed at [facility] department of Cytology, [facility] [place] Clinical History (other): Z01.419, Z11.3, IRREGULAR PERIOD WITH blinkboxON Phone #: [phone], On-Call Pathologist: [id number] SYPHILIS TESTING Reviewed date:06/17/2023 08:54:02 AM Interpretation: Performing Lab:Testing performed or reported by [facility], a Service of [facility], [facility] [place] [address] Jem Emerson MD, Hairspring Ii Inspector CLIA# [id number] Notes/Report: SYPHILIS SCREEN BY NICHOLE NEGATIVE (NEG) Reference range: Negative This test was performed on the GoEuro Stock Mover immunoassay system. RPR TITER RESULT NOT INDICATED TPPA RESULT NOT INDICATED SYPHILIS INTERPRETATION Indicative of th e absence of infection with Treponemal pallidum. Test may be negative in cases of incubating or early primary syphilis. Consider repeat testing in several weeks if clinical suspicion is high. HIV AB-AG 4TH GENERATION Reviewed date:06/17/2023 08:54:13 AM Interpretation: Performing Lab:Testing performed or reported by [facility], a Service of [facility], [facility] [place] [address] Jem Emerson MD, Hairspring Ii Inspector CLIA# [id number] Notes/Report: RESULT 4TH GEN HIV AB-AG NEGATIVE (NEG) Negative for antibodies to HIV 1 and HIV 2 and P24 antigen. Reference range: Negative Additional note: Written patient authorization is required for each separate release of this test result. This test was performed on the Malin Stock Mover immunoassay system. 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 Medications Medication SIG (Take, Route, Fr [...] Status W/U Status Risk Notes Problem COVID-19 (797305860) COVID-19 (U07.1) Active confirmed Problem Attention deficit hyperactivity disorder, combined type (87275933) Attention-deficit hyperactivity disorder, combined type (F90.2) Active confirmed Problem Recurrent major depression (41834330) Major depressive disorder, recurrent, unspecified (F33.9) Active confirmed Vital Signs Temperature 97.3 degrees Fahrenheit 06/13/20 23 Blood pressure systolic 104 mm Hg 06/13/20 23 Blood pressure diastolic 60 mm Hg 023 Height 59 in 06/13/2023 Weight 108 lbs 06/13/2023 BMI 21.81 kg/m2 06/13/2023 Encounters Encounter Location Date Provider Diagnosis [address] [place] [address] 06/13/2023 PATY ALLISON Encounter for gynecological examination [...] Follow Up: 1 Year, Reason: Y 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 She is new to this practice, having never received previous linux systems analyst care. ?She has been in state of good health since her last exam. She has the following concerns: she had postcoital bleeding - sometimes light, sometimes heavy, last time was about a year ago. ?She has received the Aureliant Covid-19 vaccine. ?Relationship status: single. She is [...] have dancing and other movement). * ROS:?Annual Culinary Art Teacher Exam ROS:?Bowel habit changes?denies.?Bladder symptoms?denies.?Vaginal discharge, unusual?denies.?Vaginal itch or odor?denies.?weight or appetite changes?denies.?Chest pains, SOB?denies.?depression?denies,?feels ok today - denies SI/HI.?Breast:?Denies?Breast lump.?Denies?Nipple discharge.?Hematology:?Denies?Swollen glands.?Skin:?Patient denies?changing moles.?Psychiatric:?Admits?Anxiety,?she uses deep breathing and introspective review.? * Medical History:? * Culinary Art Teacher History:?/ Para?0/0.?Sexual activity?with both men and women; [...] ?GENERAL APPEARANCE:?in no acute distress,well developed, well nourished,sueding machine tender present in room.?HEAD:?normocephalic, atraumatic.?NECK/THYROID:?neck supple, full range [...] * Treatment: ? Value Reference Range ?CYTOLOGY, INDUSTRIAL EQUIPMENT WIRER Patient Name: RIP ORDAZ - * VAGINAL/CERVICAL, [...] Codes:? * Preventive Medicine:?Suicide Prevention Hotline - 002 https://[email or web address] [email or web address] * Follow Up:?1 Year (Reason: Y early Culinary Art Teacher Exam) * Images: Billing Information: * Visit Code:? 10358 Preventive Care New Pt. Age 18-39. * Procedure Codes:? 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 She is new to this practice, having never received previous linux systems analyst care. She has been in state of good health since her last exam. She has the following concerns: she had postcoital bleeding - sometimes light, sometimes heavy, last time was about a year ago. She has received the Aureliant Covid-19 vaccine. Relationship status: single. She is [...] ac freddie distress, well developed, well nourished, sueding machine tender present in room HEAD: normocephalic, atrau matic [...]
--- NOTE | 2024-10-26 09:42 | P.CONAN_ITS ---
Documented by User: Mari De La Vega NP 10/26/24 09:42 HPI - Anesthesia Eval Consult details Narrative: 23yo F for Right Cystoscopy, Ureteroroscopy, Retro, Laser with stent placement PMFSH Active Problems Active Problems: All Active Problems Ureteric calculus (Acute) Social History Social History (Updated 10/27/24 @ 08:47 by Leonie Owens MD) Are you a primary account executive healthcare to a significant other at home: No Do you presently have visiting nurse or other home services: No Patient Tobacco Use Status: Never used Tobacco Substance Use Type: Marijuana Meds Allergies Allergy/AdvReac Type Severity Reaction Status Date / Time No Known Allergies Allergy Verified 10/27/24 08:58 Assessment and Plan Assessment Anesthesia Assessment: Chart Reviewed Documented by User: Leonie Owens MD 10/27/24 09:45 PMFSH Family History Family history of problems with anesthesia: No Surgical History History of Problems with Anesthesia: No Social History Social History (Updated 10/27/24 @ 08:47 by Leonie Owens MD) Are you a primary account executive healthcare to a significant other at home: No Do you presently have visiting nurse or other home services: No Patient Tobacco Use Status: Never used Tobacco Substance Use Type: Marijuana Meds Allergies Allergy/AdvReac Type Severity Reaction Status Date / Time No Known Allergies Allergy Verified 10/27/24 08:58 Exam Height,Weight and Vital Signs: Height 4 ft 11 in Weight 51 kg Vital Signs Temp Pulse Resp BP Pulse Ox O2 Del Method 10/27/24 08:36 98.3 F 75 14 117/77 97 Room Air Pertinent Lab Results Pertinent Lab Results: Lab Results 10/27/24 Range/Units 08:30 Urine Test NEGATIVE (NEGATIVE) Airway Mallampati Class: II TM Dist: >3cm Neck ROM: Full Loose/Missing/Broken Teeth: Yes (Missing some teeth. Denies broken or loose teeth) Heart: RRR Lungs: CTAB Assessment and Plan Assessment Anesthesia Assessment: Anesthesia Plan Discussed and Chart Reviewed Final Anesthetic Review Family History of Problems with Anesthesia: No History of Problems with Anesthesia: No NPO: Yes ASA Class: II Final Preanesthetic Review: No Changes in Pt Med Stat, Meds/Allgs Chart Reviewed, Consent Obtained/Reviewed and Anes Risks/Benef Reviewed Patient Risk: Low Procedure Risk: Low Assessment/Block/Sedation in SS: Assess/Block/Sedation-SS Anesthetic Plan Anesthetic Plan: GA Disposition: Standard PACU
--- NOTE | ~2024-10-27 | FL_ITS ---
EXAMINATION: FL GUIDANCE ONLY HISTORY: cystoscopy, ureteroscopy, retro, laser with stent COMPARISON: Correlation is made with a CT of the abdomen and pelvis with contrast dated 10/09/2024. TECHNIQUE: Fluoroscopy time: 20.2 seconds. Cumulative Dose: 3.18 mGy. Images: 4. FINDINGS: Images demonstrate placement of a right nephroureteral stent. FL/FL guidance in OR IMPRESSION: Fluoroscopy during procedure. Please see procedure report for additional information. Electronically signed by: Ion Chapa MD 10/27/2024 11:03 AM EDT
[2024-10-27 08:36] VITALS: BP 117/77; PULSE 75; RESP 14; TEMP 36.8; O2SAT 97; BMI 22.7
--- NOTE | 2024-10-27 09:27 | P.OP_ITS ---
Operative Note Operative Note Date of Service: 10/27/24 Narrative: PreOperative Diagnosis:?? Right proximal ureteral stone Post Operative Diagnosis:?? Right proximal ureteral stone Procedure: - Cystoscopy, retrograde, right ureteroscopy laser lithotripsy stent insertion, 7 Macedonian by 26 cm Surgeon:?Dr Ranjan Chen Anesthesia:? General Procedure: After informed consent was verified the patient was brought to the operating placed on the OR table in supine position.? General Anesthesia was administered per protocol.? The patient was placed in lithotomy position, prepped and draped in the usual sterile fashion.? Safety pause time-out and side of surgery confirmed.? Antibiotics confirmed. 2% lidocaine jelly 10 mL was passed transurethrally. A 22 Macedonian cystoscope was inserted transurethrally, The bladder was visualized.? Both ureteric orifices were in normal position. An open-ended ureteral catheter was passed into the right ureteral orifice and a retrograde examination was performed. There was a filling defect in the lower 3rd of the proximal right ureter and dilatation of the proximal ureter. A guidewire was passed through the ureteral catheter into the kidney. The balloon dilator size 12 fr x 4 cm was passed over the guide-wire the balloon was inflated to 10 mmHg and the intramural ureter was dilated for 40 seconds. The balloon was deflated and removed. The cystoscope was removed leaving the guidewire in place which was attached to the drapes as a safety. The semi rigid ureteroscope was passed transurethrally with a 2nd guidewire to the level of the stone. There was edema and inflammation of the ureteral mucosa around the stone. Laser lithotripsy of the stone was done using the 365 fiber with pulsating setting, 0.6 joules by 5 gibson. There was good fragmentation of the stone. The 0 degree basket was passed through the ureteroscope, stone fragment(s) removed and sent for analysis. The ureteroscope was removed. The cystoscope was passed over the safety guidewire. A? 7 Macedonian by 26 cm stent was placed into the ureter and renal pelvis under a combination of fluoroscopy and direct visualization. The bladder was emptied.? The rigid cystoscope was removed. ? The patient tolerated the procedure well and was brought to the recovery room in stable condition. The plan will be to keep the ureteral stent for at least 2 weeks due to the edematous inflamed urethral mucosal tissue noted as dictated. Complications: None Drains: Ureteral stent as dictated above
--- NOTE | 2024-10-27 09:27 | MHC.SHP ---
Pre-Procedural Eval Section A - 24 Hr Update-Section A only Date of Service: 10/27/24 The patient is an INPATIENT: No The patient has been examined within 24 hours of the surgical procedure. The History & Physical has been completed within 30 days and I have reviewed it.: Yes Section B - Complete if H&P > 30 days Chief Complaint: Calculus of ureter Allergies: Allergies Allergy/AdvReac Type Severity Reaction Status Date / Time No Known Allergies Allergy Verified 10/27/24 08:58 Plan Diagnosis/Plan: Unchanged I have reviewed the history and physical and performed a pertinent physical examination on my patient. No changes have occurred unless specified. Plan for Cystoscopy, right ureteroscopy, possible laser lithotripsy, possible ureteral stent. Risks discussed included but not limited to, possible need to repeat procedure if stone is not completely fragmented, Irritative voiding symptoms, bladder spasms, urgency, blood in urine. Time Spent With Patient Time: Total time managing care of this patient today ____ minutes.
[2024-10-27 09:32] LABS: UPreg QC Valid YES; Urine Pregnancy NEGATIVE (NEGATIVE)
[2024-10-27 11:00] VITALS: BP 128/79; PULSE 101; RESP 16; TEMP 36.3; O2SAT 100
[2024-10-27 11:05] VITALS: BP 130/88; PULSE 99; RESP 16; O2SAT 99
[2024-10-27 11:10] VITALS: BP 129/83; PULSE 104; RESP 16; O2SAT 100
[2024-10-27] MEDS: Phenazopyridine HCL 200 MG TABLET PO (11:10)
[2024-10-27 11:15] VITALS: BP 124/85; PULSE 100; RESP 20; O2SAT 99
[2024-10-27 11:30] VITALS: BP 123/78; PULSE 81; RESP 20; TEMP 36.1; O2SAT 99
[2024-11-02 23:48] LABS: Stone Source KIDNEY STONE
== END 2024-10-27 12:14 | disposition home or self-care (01) ==
PROVIDERS: Nurse Practitioner; PCP Internal Medicine; Visit Provider Urology
PROC: (CPT 52356; principal; 2024-10-27 09:50)
DX: N20.1 Calculus of ureter (principal); Z79.899 Other long term (current) drug therapy
CPT/HCPCS: 52356; 81025; 82365; 87086; 88300; C1726; C1758; C1769; C2617; J0131; J0690; J1100; J2003; J2250; J2405; J2704; J3010; Q9967

== ENCOUNTER 2024-11-13 10:21 | Outpatient (AMB) | payer BC, SELFPAY ==
--- NOTE | 2024-11-13 10:35 | A.OFFVIS_ITS ---
Intake Visit Reasons: Stent removal Intake Note: Patient is present for a stent removal Urology Medication:none Antibiotic Allergy:none Blood Thinner:none Specification Manager Required: No Allergies No Known Allergies Allergy (Verified 11/13/24 10:50) Medication List - Last Reconciled 11/13/24 by Ranjan Chen MD naproxen 500 mg PO Q12H HPI Comments Details: 11/13/24-- Here for cysto stent removal. 24-year-old female presenting with ureteral stent removal. A CT scan conducted on October 09, 2024, revealed an 8 mm proximal right ureteral stone accompanied by moderate hydronephrosis. The patient subsequently underwent cystoscopy, ureteroscopy, laser lithotripsy, and ureteral stent placement on October 27, 2024. Since then, her post-operative condition has been stable, and she reports no unusual or concerning symptoms apart from typical sensations associated with stent presence, such as pressure. The procedure today involved cystoscopic removal of the ureteral stent without any complications. I explained to the patient the importance of hydration in preventing kidney stone recurrence and discussed the benefits of citrate in stone prevention, including the incorporation of ab and oranges into her diet. We also talked about conducting a 24-hour urine test to evaluate her di etary habits in relation to stone prevention. I provided detailed instructions regarding how to collect the 24-hour urine sample and discussed the importance of dietary modifications in preventing future stone formation. Results - CT scan (10/09/24): 8 mm proximal right ureteral stone, moderate hydronephrosis - Procedure (10/27/24): Cystoscopy, ureteroscopy, laser lithotripsy, and ureteral stent placement - Stone analysis (10/27/24)-- 80% calcium oxalate 10/13/24--Rip is a very pleasant female. She is a patient of . She is seen for the following urologic conditions - ureteric nephrolithiasis. Recently seen in emergency room. First-time stone former Imaging - 10/13 There is an 8 mm stone in the proximal right ureter causing moderate hydronephrosis. No right nephrolithiasis. No left hydronephrosis or nephrolithiasis. Mild scarring in the upper pole of the left kidney. Recommend intervention - cystoscopy, right retrograde, right ureteroscopy with laser lithotripsy and stone basket [facility] Social History Are you a primary childcare director to a significant other at home: No Do you presently have visiting nurse or other home services: No Patient Tobacco Use Status: Never used Tobacco Substance Use Type: Marijuana Review of Systems Const All systems reviewed & are unremarkable except as noted in HPI and below Reports no additional complaints Eyes Reports no additional complaints ENT Reports no additional complaints Card Reports no additional complaints Resp Reports no additional complaints GI Reports no additional complaints Reports as per HPI Musc Reports no additional complaints Skin/Breast Reports system reviewed and no additional complaints, except as documented Neuro Reports no additional complaints Psych Reports no additional complaints Endo Reports no additional complaints Madhu/Lymph Reports no additional complaints Aller/Immun Reports no additional complaints Office Procedures Cystoscopy Consent Discussed risk and benefit or proposed procedure with the patient. Information consent for procedure given to the patient. Discussed technical aspects, risks, benefits and alternatives in full. Addressed all of the patient's questions and concerns regarding the procedure. The patient demonstrated knowledge and understanding. They wish to proceed with this procedure. Preparation The patient was prepped in the usual manner. A freight booker was present and in the room. Genitalia was prepped with betadine solution in a sterile manner. Lidocaine Jelly 2% was placed into the urethra and 16Fr flexible Olympus cystoscope was inserted into the meatus after adequate lubrication. Time out per protocol performed. Speculum used as indicated for adequate visualization of urethra, the flexible cystoscope is passed transurethrally: Cystoscopy findings: mild edema ureteral orifice which is expected, distal end of ureteral stent visualized. The grasping forceps were used and the stent was removed without difficulty. 75586-Xppdysotmi with stent removal DISPOSABLE SCOPE URO-G FLEXIBLE SCOPE Procedure code (CPT) selection complete Office Meds lidocaine HCl 2 % mucosal jelly in applicator Performing Provider: Ranjan Chen MD Performing Location: [facility] Administered by: Garima Silver RN on 11/13/24 11:08 Dose Route Admin Location Dispensed Lot Number Expiration Date [facility] Dispensing Operator 20 mL intra-urethral 20 mL ciprofloxacin HCl 500 mg tablet Performing Provider: Ranjan Chen MD Performing Location: [facility] Administered by: Garima Silver RN on 11/13/24 11:08 Dose Route Admin Location Dispensed Lot Number Expiration Date NDC Dispensing Operator 500 mg PO 1 tab naproxen 500 mg tablet Performing Provider: Ranjan Chen MD Performing [facility] Administered by: Garima Silver RN on 11/13/24 11:08 Dose Route Admin Location Dispensed Lot Number Expiration Date NDC Dispensing Operator 500 mg PO 1 tab phenazopyridine 200 mg tablet Performing Provider: Ranjan Chen MD Performing Location: [facility] Administered by: Garima Silver RN on 11/13/24 11:08 Dose Route Admin Location Dispensed Lot Number Expiration Date NDC Dispensing Operator 200 mg PO 1 tab Results Reviewed Results Reviewed: Date of Service: 10/09/24 CLINICAL HISTORY: Right sided pain andi dtenderness CT abdomen and pelvis with contrast Comparison: None Findings: No consolidation at the lung bases. Unremarkable gallbladder and bladder. There is an 8 mm stone in the proximal right ureter causing moderate hydronephrosis. No right nephrolithiasis. No left hydronephrosis or nephrolithiasis. Mild scarring in the upper pole of the left kidney. No focal decreased enhancement of the kidneys. Subcentimeter low attenuating lesion in the liver which is too small to characterize. The other solid organs are unremarkable. No bowel wall thickening or dilation. The appendix is not visualized. No secondary signs of acute appendicitis. Normal vasculature. No lymphadenopathy. No ascites. No acute osseous abnormality. Impression: 8 mm stone in the proximal right ureter causing moderate hydronephrosis. OLL: 10/27/24-1101 STATUS: COMP REQ : [id number] RECD: 10/27/24-[address]: Ranjan Chen MD COMP: 11/02/24-2348 ENTERED: 10/27/24-[address]: JENARO GUTIERREZ MD ORDERED: Kidney Stone QUERIES: Kidney Stone Source: [id number] Test Result Flag Reference Component 1 SEE NOTE Calcium Oxalate Dihydrate (Weddellite) 60% Calcium Oxalate Monohydrate (Whewellite) 20% Carbonate Apatite (Dahllite) 20% Stone Weight 0.013 g This test was developed and its analytical performance characteristics have been determined by [employer]. It has not been cleared or approved by the FDA. This assay has been validated pursuant to the CLIA regulations and is used for clinical purposes. THIS TEST WAS PERFORMED AT: [employer] [address] [place] [address] DANIEL FIERRO MD,PHD,PETER Stone Source KIDNEY STONE Assessment & Plan Assessment & Plan (1) Ureteric calculus: Code(s): N20.1 - Calculus of ureter Category: Medical (2) Hydronephrosis: Code(s): N13.30 - Unspecified hydronephrosis Category: Medical Plan Plan - Ensure daily fluid intake of 48 to 64 ounces - Add citrus such as ab and oranges to your diet - Follow instructions for the 24-hour urine collection and ensure it is sent back correctly - Monitor for any unusual symptoms post-removal and notify if experienced - Follow up for review of 24-hour urine test results as advised Orders: Orders AMB Cystoscopy Today N20.1 - Calculus of ureter Medications: Discontinued hydroxyzine pamoate Medication may cause drowsiness Discontinued Reason: Patient no longer taking 25 mg PO BEDTIME 30 caps 0RF Bladder spasms Patient Instructions: The patient had an opportunity to ask questions regarding treatment plan. The patient expressed understanding and agreement with the above treatment plan. The patient is aware they should contact our office by phone for worsening of their current condition or the appearance of new symptoms. Compliance is encouraged with any medications and followup testing that is ordered. It is a privilege to be allowed the opportunity to participate in the urologic care of your patient. If you have any questions or concerns regarding treatment for the above conditions please do not hesitate to contact me. The office telephone contact is [phone]. This note is constructed in part using voice recognition software. While every effort has been made to ensure accuracy supervisor steel division errors may have been included. Yours sincerely, Ranjan Chen MD Scribe Plan - Not visible on output: Patient was informed and verbally consented to the use of an ambient scribe for clinic note documentation during this visit. Coding Level of Care Code Procedure Only Diagnoses Ureteric calculus N20.1 Hydronephrosis N13.30 CPT Codes Cystoscopy - CPT: 09350-Ehoyndqnnr with stent removal ([id number])
== END 2024-11-13 11:38 | disposition home or self-care (01) ==
LOC: HO.HUSH 10:22
PROVIDERS: PCP Internal Medicine; Visit Provider Urology
DX: N20.1 Calculus of ureter (principal); N13.30 Unspecified hydronephrosis; Z13.9 Encounter for screening, unspecified
CPT/HCPCS: 52310

== ENCOUNTER → 2024-11-13 10:21 | Outpatient (BNVA) | payer BC, SELFPAY | PROVIDERS: PCP Internal Medicine; Visit Provider Urology | DX: N20.1 Calculus of ureter (principal); N13.30 Unspecified hydronephrosis; Z46.6 Encounter for fitting and adjustment of urinary device | CPT/HCPCS: 52310; 81003 ==

== ENCOUNTER 2025-02-04 08:35 | Outpatient (AMB) | payer OTHER, SELFPAY ==
--- NOTE | 2025-02-04 08:35 | A.OFFVIS_ITS ---
Intake Visit Reasons: 12w/kidney stones/[facility] Intake Note: Pt presents to the office as a telehealth visit today for a 12 week follow up/kidney stones/[facility] Urology Meds:None Blood thinners:None Allergies No Known Allergies Allergy (Verified 02/04/25 08:35) HPI Comments Details: 02/04/25-- History of Present Illness - The patient is a 24-year-old female presenting for a telehealth evaluation to review 24-hour urine collection results. - History of ureteral stone treated with cystoscopy and laser lithotripsy on 10/27/24. - A single stone was identified on a CT scan on 10/09/24 and treated during ureteroscopy. - The goal is diet management and monitoring of kidney function, with a follow- up scheduled in one year with a nurse practitioner. Results - 24-hour urine collection: Calcium excretion normal at 190 mg/day, oxalate normal at 19 mg/day, urine volume low-780 mL, citrate level low at 332 mg/day. Discussion Notes I discussed the results of the 24-hour urine collection with the patient, noting that calcium and oxalate levels were normal, but the urine volume was low and citrate levels were below normal. I recommended increasing fluid intake to 48-64 ounces per day and adding lemon or low-sugar lemonade to the diet to increase citrate levels, which can help prevent future stone formation. A renal ultrasound is planned for next year, and the patient will follow up with the nurse practitioner. 11/13/24-- Here for cysto stent removal. 24-year-old female presenting with ureteral stent removal. A CT scan conducted on October 09, 2024, revealed an 8 mm proximal right ureteral stone accompanied by moderate hydronephrosis. The patient subsequently underwent cystoscopy, ureteroscopy, laser lithotripsy, and ureteral stent placement on October 27, 2024. Since then, her post-operative condition has been stable, and she reports no unusual or concerning symptoms apart from typical sensations associated with stent presence, such as pressure. The procedure today involved cystoscopic removal of the ureteral stent without any complications. I explained to the patient the importance of hydration in preventing kidney stone recurrence and discussed the benefits of citrate in stone prevention, including the incorporation of ab and oranges into her diet. We also talked about conducting a 24-hour urine test to evaluate her dietary habits in relation to stone prevention. I provided detailed instructions regarding how to collect the 24-hour urine sample and discussed the importance of dietary modifications in preventing future stone formation. Results - CT scan (10/09/24): 8 mm proximal right ureteral stone, moderate hydronephrosis - Procedure (10/27/24): Cystoscopy, ureteroscopy, laser lithotripsy, and ureteral stent placement - Stone analysis (10/27/24)-- 80% calcium oxalate 10/13/24--Rip is a very pleasant female. She is a patient of . She is seen for the following urologic conditions - ureteric nephrolithiasis. Recently seen in emergency room. First-time stone former Imaging - 10/13 There is an 8 mm stone in the proximal right ureter causing moderate hydronephrosis. No right nephrolithiasis. No left hydronephrosis or nephrolithiasis. Mild scarring in the upper pole of the left kidney. Recommend intervention - cystoscopy, right retrograde, right ureteroscopy with laser lithotripsy and stone basket [facility] Social History Are you a primary family day care worker to a significant other at home: No Do you presently have visiting nurse or other home services: No Patient Tobacco Use Status: Never used Tobacco Substance Use Type: Marijuana Review of Systems Const All systems reviewed & are unremarkable except as noted in HPI and below Reports no additional complaints Eyes Reports no additional complaints ENT Reports no additional complaints Card Reports no additional complaints Resp Reports no additional complaints GI Reports no additional complaints Reports as per HPI Musc Reports no additional complaints Skin/Breast Reports system reviewed and no additional complaints, except as documented Neuro Reports no additional complaints Psych Reports no additional complaints Endo Reports no additional complaints Madhu/Lymph Reports no additional complaints Aller/Immun Reports no additional complaints Telehealth Telehealth Telehealth Platform: [employer] Location of provider rendering services: practice address Location of patient: address on file Patient Identification confirmed using: Name, : Yes Telehealth method: voice only Patient verbally consented to treatment: Yes Patient verbally consented to billing insurance company: Yes Patient informed of any privacy concerns related to visit: Yes Minutes spent on Phone/Video with Pt.: 13 Results Reviewed Results Reviewed: Date of Service: 10/09/24 CLINICAL HISTORY: Right sided pain andi dtenderness CT abdomen and pelvis with contrast Comparison: None Findings: No consolidation at the lung bases. Unremarkable gallbladder and bladder. There is an 8 mm stone in the proximal right ureter causing moderate hydronephrosis. No right nephrolithiasis. No left hydronephrosis or nephrolithiasis. Mild scarring in the upper pole of the left kidney. No focal decreased enhancement of the kidneys. Subcentimeter low attenuating lesion in the liver which is too small to characterize. The other solid organs are unremarkable. No bowel wall thickening or dilation. The appendix is not visualized. No secondary signs of acute appendicitis. Normal vasculature. No lymphadenopathy. No ascites. No acute osseous abnormality. Impression: 8 mm stone in the proximal right ureter causing moderate hydronephrosis. OLL: 10/27/24110 STATUS: COMP REQ : [id number] RECD: 10/27/[address]: Ranjan Chen MD COMP: 11/02/24 ENTERED: 10/27/24-[address]: JENARO GUTIERREZ MD ORDERED: Kidney Stone QUERIES: Kidney Stone Source: [id number] Test Result Flag Reference Component 1 SEE NOTE Calcium Oxalate Dihydrate (Weddellite) 60% Calcium Oxalate Monohydrate (Whewellite) 20% Carbonate Apatite (Dahllite) 20% Stone Weight 0.013 g This test was developed and its analytical performance characteristics have been determined by [employer]. It has not been cleared or approved by the FDA. This assay has been validated pursuant to the CLIA regulations and is used for clinical purposes. 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 - Schedule a renal ultrasound for next year to monitor kidney function. - Follow up with the nurse practitioner in one year for ongoing monitoring. Orders: Orders US renal BI 10 Months N20.0 - Calculus of kidney, Z87.442 - Personal history of urinary calculi Patient Instructions: The patient had an opportunity to ask questions regarding treatment plan. The p atient expressed understanding and agreement with the above treatment plan. The patient is aware they should contact our office by phone for worsening of their current condition or the appearance of new symptoms. Compliance is encouraged with any medications and followup testing that is ordered. It is a privilege to be allowed the opportunity to participate in the urologic care of your patient. If you have any questions or concerns regarding treatment for the above conditions please do not hesitate to contact me. The office telephone contact is [phone]. This note is constructed in part using voice recognition software. While every effort has been made to ensure accuracy insole toe snipping machine operator errors may have been included. Yours sincerely, Ranjan Chen MD Scribe Plan - Not visible on output: Patient was informed and verbally consented to the use of an ambient scribe for clinic note documentation during this visit. Coding Level of Care Code Tele Est Pt Level 3 (89745) Diagnoses Calcium nephrolithiasis N20.0
--- OUTSIDE RECORDS SUMMARY | 2025-02-04 08:55 | XMS_ITS | Patient Health Record ---
Author Organization [facility] Address [address] [place] [address] Care Team Providers Care Foreign Trade Teacher Name Role Phone MATT JACK, JENARO Primary Care Provider PATY Brewer Unavailable [phone] Allergies No Known Allergies Results Component Value Reference Range Notes Chlamydia/GC Amplification Reviewed date:06/18/2024 11:21:51 AM Interpretation: Performing Lab:[facility], [address], [address], [place], Phone - [phone], Director - [place] Notes/Report: Chlamydia trachomatis, RAJI Negative Negative Neisseria gonorrhoeae, RAJI Negative Negative PDF Report Reviewed date:06/18/2024 08:51:36 AM Interpretation: Performing Lab:[facility], [address], [address], [place], Phone - [phone], Director - [place] Notes/Report: Reason For Referral No Information Medications Medication SIG (Take, Route, Frequency, Duration) Notes Start Date End Date Status Atomoxetine HCl 40 MG Oral for 30 Not-Taking Sertraline HCl 50 MG TAKE 1 TABLET BY [facility] DAILY Oral for 30 PRN Active [...] Problem Status W/U Status Risk Notes Problem Major depressive disorder, recurrent, unspecified (F33.9) Active confirmed Problem Attention deficit hyperactivity disorder, combined type (48800425) Attention-deficit hyperactivity disorder, combined type (F90.2) Active confirmed Problem COVID-19 (635699230) COVID-19 (U07.1) Active confirmed Vital Signs Temperature 98.0 degrees Fahrenheit 06/16/2024 Blood pressure diastolic 70 mm Hg 06/16/2024 Height 59 in 06/16/2024 Blood pressure systolic 110 mm Hg 06/16/2024 Weight 111 lbs 06/16/2024 BMI 22.42 kg/m2 06/16/2024 Encounters Encounter Location Date Provider Diagnosis [facility] [address] [place] [address] 06/16/2024 PATY ALLISON Encounter for gynecological examination [...] Treatment Pending Test Test Name Order Date [id number] 06/16/2024 HBsAg [id number] 06/16/2024 HIV Ab/p24 Ag with Reflex-[id number] [id number] HCV Antibody-[id number] 06/16/2024 Next Appt Details Provider Name:PATYIsreal Dye, 06/17/2025 11:00:00 AM, [address], [address], [place], [address], Insurance Providers Payer Name Payer Address Payer Phone Subscriber Number Group Number Insured Name Patient Relationship to Insured Coverage Start Date Coverage End Date [employer] [place] [address] [place] [address] [phone] [id number] BRIANA MAX Child - Insured has Financial Responsibility Medical (General) History Medical History History ICD Code COVID-19 U07.1 Attention-deficit hyperactivity disorder , combined type F90.2 Major depressive disorder, recurrent, un specified F33.9 Surgical History Surgery Date(Month/Year)
== END 2025-02-04 09:57 | disposition home or self-care (01) ==
LOC: HO.HUSH 08:35
PROVIDERS: PCP Internal Medicine; Visit Provider Urology
DX: N20.0 Calculus of kidney (principal)
CPT/HCPCS: 99213